=== PATIENT | male | born 1995 | race Caucasian/White ===

== ENCOUNTER 2020-07-10 05:38 | Emergency (ER) | payer OTHER ==
[~2020-07-10] VITALS: Ht 185.4 cm; Wt 109.5 kg
[2020-07-10 07:18] VITALS: BP 120/65
== END 2020-07-10 07:18 | disposition home or self-care (01) ==
LOC: ED 05:38
DX: S01.01XA Laceration without foreign body of scalp, initial encounter (principal); W01.0XXA Fall on same level from slipping, tripping and stumbling without subsequent striking against object, initial encounter; Y93.89 Activity, other specified; Y92.89 Other specified places as the place of occurrence of the external cause; Y99.8 Other external cause status
CPT/HCPCS: 82962; 90715

== ENCOUNTER 2020-07-17 13:32 | Emergency (ER) | payer OTHER ==
[~2020-07-17] VITALS: Ht 185.4 cm; Wt 111.1 kg
[2020-07-17 13:38] VITALS: BP 153/86; Ht 185.4 cm; Wt 111.1 kg
== END 2020-07-17 14:11 | disposition home or self-care (01) ==
LOC: ED 13:32
DX: S01.01XD Laceration without foreign body of scalp, subsequent encounter (principal); J45.909 Unspecified asthma, uncomplicated; X58.XXXD Exposure to other specified factors, subsequent encounter